=== PATIENT | male | born 1965 | race Caucasian/White ===

== ENCOUNTER 2018-01-17 06:35 | Day surgery (SDC) | payer OTHER ==
[2018-01-15 10:20] VITALS: BMI 40.1
[~2018-01-17 06:35] MED LIST: LACTATED RINGERS 1,000 ML IV SCH
[2018-01-17 07:22] VITALS: TEMP 98.6
[2018-01-17 07:33] LABS: Glucose,Whole Blood 132 mg/dL (75-99)
[2018-01-17] MEDS ORDERED: PROPOFOL 10 MG/ML 20 ML VIAL IV ONE (07:40)
--- NOTE | 2018-01-17 07:45 | P.GSHP ---
History of Present Illness H&P Date: 01/17/18 Chief Complaint: Screening colonoscopy This is a 52-year-old male from Dr. Todd De Santiago. Patient rents today for screening colonoscopy. He denies a significant GI complaints. Past Medical History Past Medical History: Diabetes Mellitus, Hyperlipidemia, Thyroid Disorder History of Any Multi-Drug Resistant Organisms: None Reported Additional Past Surgical History / Comment(s): Rectal fistula repair Past Anesthesia/Blood Transfusion Reactions: No Reported Reaction Smoking Status: Never smoker - Past Family History Mother Family Medical History: No Reported History Medications and Allergies Home Medications Medication Instructions Recorded Confirmed Type Levothyroxine Sodium [Synthroid] 50 mcg PO DAILY 07/21/14 01/15/18 History Simvastatin [Zocor] 40 mg PO HS 07/21/14 01/15/18 History metFORMIN HCL 1,000 mg PO BID 07/21/14 01/15/18 History Minocycline HCl [Minocycline HCl] 100 mg PO DAILY 01/26/16 01/15/18 History Insulin Glargine [Lantus] 70 unit SQ HS 01/15/18 01/15/18 History Vitamin D3(Dose Unknown) 1 tab PO BID 01/15/18 01/15/18 History Allergies Allergy/AdvReac Type Severity Reaction Status Date / Time No Known Allergies Allergy Verified 01/15/18 10:13 Surgical - Exam Vital Signs Temp Pulse Resp BP Pulse Ox 98.6 F 69 14 116/71 96 01/17/18 07:21 01/17/18 07:21 01/17/18 07:21 01/17/18 07:21 01/17/18 07:21 - General well developed, no distress - Eyes PERRL - ENT normal pinna - Neck no masses - Respiratory normal expansion - Cardiovascular Rhythm: regular - Abdomen Abdomen: soft, non tender Results - Labs Abnormal Lab Results - Last 24 Hours (Table) 01/17/18 Range/Units 07:28 POC Glucose (mg/dL) 132 H (75-99) mg/dL Assessment and Plan Assessment: We'll perform screening colonoscopy.
--- NOTE | 2018-01-17 07:57 | P.OP ---
Date of Procedure: 01/17/18 Preoperative Diagnosis: Screening colonoscopy Postoperative Diagnosis: Normal colonoscopy Procedure(s) Performed: Colonoscopy Anesthesia: MAC Surgeon: Ramesh Leonard Pathology: none sent Condition: stable Disposition: PACU Description of Procedure: PROCEDURE: The patient was placed on the endoscopy table in the lateral position. Digital rectal examination was performed which revealed no abnormalities. The prostate was symmetrical without nodules. Flexible colonoscope was then placed in the patient's anus and passed throughout the entire colon. The ileocecal valve was visualized. The cecum, ascending, transverse, descending and sigmoid colon were normal. The rectum was normal as well. There were no masses, polyps or diverticula noted in the entire colon. SUMMARY OF FINDINGS: Normal colonoscopy.
[2018-01-17 08:12] VITALS: BP 114/69; PULSE 56; RESP 16
== END 2018-01-17 08:33 | disposition home or self-care (01) ==
LOC: ORWHC2ENDO 06:35
PROVIDERS: ATTEND Surgery
DX: Z12.11 Encounter for screening for malignant neoplasm of colon (principal); E11.9 Type 2 diabetes mellitus without complications; Z79.4 Long term (current) use of insulin; E78.5 Hyperlipidemia, unspecified; E07.9 Disorder of thyroid, unspecified; Z79.2 Long term (current) use of antibiotics; Z79.899 Other long term (current) drug therapy
CPT/HCPCS: J2704; G0121; 45378

== ENCOUNTER → 2018-04-02 | Outpatient (CLI) | payer OTHER ==
[2018-04-02 16:23] LABS: HGB 16.1 gm/dL (13.0-17.5); MCHC 34.3 g/dL (31.0-37.0); MCV 90.5 fL (80.0-100.0); Mean Platelet Volume 7.7; Platelet Count 238 k/uL (150-450); RBC 5.19 m/uL (4.30-5.90); RDW 14.4 % (11.5-15.5); WBC 6.9 k/uL (3.8-10.6)
[2018-04-02 16:49] LABS: Albumin 3.7 g/dL (3.5-5.0); Bilirubin, Delta 0.3 mg/dL (0.0-0.2); Bilirubin,Unconjugated 0.1 mg/dL (0.0-1.1); Total Bilirubin 0.4 mg/dL (0.2-1.3)
[2018-04-02 16:51] LABS: Appearance,Urine Clear (Clear); Bilirubin,Urine Negative (Negative); Blood,Urine Negative (Negative); Color,Urine Light Yellow; Glucose,Urine (UA) 4+ (Negative); Ketones,Urine Negative (Negative); Leukocyte Esterase,Urine Negative (Negative); Nitrite,Urine Negative (Negative); Protein,Urine Negative (Negative); Specific Gravity,Urine 1.027 (1.001-1.035); Urobilinogen,Urine <2.0 mg/dL (<2.0)
[2018-04-02 20:54] LABS: Erythrocyte Sedimentation Rate 5 mm/hr (0-15)
[2018-04-03 01:28] LABS: Thyroid Peroxidase Antibodies <28.0 U/mL (0.0-60.0)
== END | disposition home or self-care (01) ==
LOC: LABWHC1 15:15
PROVIDERS: ATTEND Allergy & Immunology
DX: K51.90 Ulcerative colitis, unspecified, without complications (principal)
CPT/HCPCS: 36415; 80076; 81003; 85027; 85652; 86376; 86800

== ENCOUNTER → 2022-03-22 | Outpatient (CLI) | payer OTHER ==
--- NOTE | 2022-03-22 18:33 | CONS ---
CONSULTATION DATE OF SERVICE: 03/22/2022 This 56-year-old gentleman has been evaluated in [facility] for possible obstructive sleep apnea-hypopnea syndrome. HISTORY OF PRESENT ILLNESS/SLEEP-WAKE EVALUATION: Patient's usual sleep schedule is from 10 p.m. to 6:30 a.m. on weekdays and from midnight until 10 a.m. on weekends. No problems with falling asleep. No TV in bedroom. The patient usually sleeps on the side position. He has loud snoring and he has a positive history of witnessed episodes of stopped breathing during sleep. The patient wakes up from sleep several times with one episode of nocturia at night. No history of hypnagogic hallucinations, sleep paralysis or cataplexy. During the day, the patient may feel sleepiness. [place] Sleepiness Scale is 7. Usually, though, he does not take regular naps. PAST MEDICAL HISTORY: Positive for diabetes mellitus, hyperlipidemia, hypothyroidism. PAST SURGICAL HISTORY: Rectal fistula removed. MEDICATIONS: Lantus 108 units, simvastatin 40 mg once a day, metformin 1000 mg twice a day, 100 mg once a day, levothyroxine mcg once a day. SOCIAL HISTORY: Negative for smoking. Alcohol consumption occasional. FAMILY HISTORY: Positive for cancer. REVIEW OF SYSTEMS: Snoring, awakenings from sleep. No fevers. No double vision. No recent chest pain. No shortness of breath. No abdominal pain. No bleeding episodes. No blood in the urine. No seizure episodes. PHYSICAL EXAMINATION: GENERAL: Pleasant gentleman without distress. VITAL SIGNS: BP 139/79, HR 86, RR 14, height 5 feet 9-1/2 inches, weight 305.8, body mass index 44.5, temperature 97.4, oxygen saturation at room air 99%. HEENT: PERRLA, EOMI, evaluation of oropharynx showed tongue protrudes midline. Extremely low position of soft palate; Mallampati IV. NECK: Supple, no JVD. Thyroid is not palpable. Neck is wide; 19 inches in circumference. LUNGS: Clear to percussion and to auscultation. Good air exchange. No wheezing or rhonchi. HEART: S1, S2 regular. No murmurs, gallops, or rubs. ABDOMEN: Obese. EXTREMITIES: No clubbing or cyanosis. PATIENT ACCOUNTING REPRESENTATIVE: Awake, alert, and oriented X3. Cranial nerves 2 to 7 intact. There is no fasciculation or atrophy. noted. No focal deficits observed. IMPRESSION: 1. Loud snoring, witnessed episodes of stopped breathing during sleep, extremely low position of soft palate, Mallampati IV, wide neck, 19 inches in circumference; obstructive sleep apnea-hypopnea syndrome. 2. Diabetes mellitus. 3. Hyperlipidemia. 4. Hypothyroidism. 5. Status post rectal fistula removed. PLAN: 1. Polysomnography for evaluation of patient's breathing during sleep. 2. CPAP/BiPAP titration if sleep study confirms obstructive sleep apnea-hypopnea syndrome. 3. Preferable position during sleep on the side. 4. No driving if patient feels any sleepiness. 5. I will see patient for follow up visit to explain results of testing and following plan. Thank you very much for referring this patient for consultation. Sincerely, Mickey Delgado MD, PhD, FAASM Diplomat of [employer] [place] [employer] Sleep Medicine Board of [employer] [place] [employer] Analyst of [facility] MMODL / ERICN: [id number] /
== END ==
LOC: SLEEP 16:31
PROVIDERS: ATTEND Internal Medicine
DX: G47.33 Obstructive sleep apnea (adult) (pediatric) (principal); E11.9 Type 2 diabetes mellitus without complications; E78.5 Hyperlipidemia, unspecified; E03.9 Hypothyroidism, unspecified; Z98.890 Other specified postprocedural states; Z87.19 Personal history of other diseases of the digestive system; Z79.4 Long term (current) use of insulin; Z79.84 Long term (current) use of oral hypoglycemic drugs; Z68.41 Body mass index [BMI] 40.0-44.9, adult
CPT/HCPCS: 99211

== ENCOUNTER → 2024-07-14 | Outpatient (CLI) | payer OTHER ==
[2024-07-14 15:52] LABS: African American GFR (CKD) 69 (>60 ml/min/1.73 sqM); Blood Urea Nitrogen 27 mg/dL (9-20); Non-African American GFR(CKD) 60 (>60 ml/min/1.73 sqM)
--- NOTE | 2024-07-14 23:39 | CT ---
CTA CHEST EXAMINATION TYPE: CT angio chest DATE OF EXAM: 07/14/2024 INDICATION: PE CT DLP: 632.1 mGycm, Automated exposure control for dose reduction was used. CONTRAST: Patient injected with 100 mL of Isovue 370. COMPARISON: None TECHNIQUE: CT of the chest is performed on a spiral scan at 2 mm thick sections. Study is performed with intravenous contrast timed for evaluation for pulmonary embolism. This will limit additional po rtions of the evaluation. 3-D MIP images reconstructed by the technologist are reviewed on the compu ter in the coronal and sagittal planes. FINDINGS: No persistent filling defects are evident to suggest an acute pulmonary embolism. There is some filling defect within the secondary or tertiary vessels of the right lower lobe suggest ing a nonobstructed thrombus is present. Example image series 4 image 76. In the coronal reconstructe d plane better visualized is a nonobstructing thrombus within the secondary left lower lobe pulmonary artery. Example image series 11 image 122. No mediastinal or hilar adenopathy enlarged by CT criteria is evident. The ascending aorta diameter at the level of the main pulmonary artery is 3.5 cm. The main pulmonary artery diameter at the bifurcation is 3.4 cm. Lung windows are clear. Limited CT sections were through the upper abdomen. Upper abdomen appears unremarkable. IMPRESSION: 1. Nonobstructing chronic appearing right lower lobe and left lower lobe pulmonary emboli [facility], , 07/14/2024 11:37 PM
== END | disposition home or self-care (01) ==
LOC: RADCTMAIN 15:01
PROVIDERS: ATTEND Family Medicine
DX: I26.93 Single subsegmental thrombotic pulmonary embolism without acute cor pulmonale (principal)
CPT/HCPCS: 36415; 71275; 82565; 84520